=== PATIENT | male | born 1975 | race Caucasian/White ===

== ENCOUNTER 2016-10-23 21:12 | Inpatient (IN) | payer MEDICAID ==
[~2016-10-23] VITALS: Ht 185.4 cm; Wt 69.5 kg
[2016-10-23 21:43] LABS: BASOPHILS % (AUTO) 0.7 % (0.0-2.0); EOSINOPHILS % (AUTO) 1.2 % (1.0-6.0); HEMATOCRIT 43.8 % (41-53); HEMOGLOBIN 14.4 g/dL (13.5-17.5); LYMPHOCYTES # (AUTO) 2.5 K/uL (1.0-4.8); LYMPHOCYTES % (AUTO) 22.6 % (22.0-44.0); MEAN CORPUSCULAR HEMOGLOBIN 28.7 pg (26.0-34.0); MEAN CORPUSCULAR HGB CONC 32.9 G/dL (31.0-37.0); MEAN CORPUSCULAR VOLUME 87 fL (80-100); MONOCYTES % (AUTO) 8.8 % (2.0-9.0); NEUTROPHILS # (AUTO) 7.4 K/uL (1.8-7.7); NEUTROPHILS % (AUTO) 66.7 % (40.0-70.0); PLATELET COUNT (AUTO) 232 K/uL (150-450); RED BLOOD CELL COUNT(AUTO) 5.03 MIL/uL (4.50-5.90); RED CELL DISTRIBUTION WIDTH 14.3 % (11.5-14.5); WHITE BLOOD COUNT (AUTO) 11.1 K/uL (4.5-11.0)
[2016-10-23 21:54] LABS: ANION GAP 10 mmol/L (8-16); CALCIUM, TOTAL 8.6 mg/dL (8.8-10.5); CARBON DIOXIDE 28 mmol/L (22-29); CHLORIDE 103 mmol/L (98-107); CREATININE 1.19 mg/dL (0.60-1.30); GLOMERULAR FILTR. RATE CALC > 60 mL/min (>60); POTASSIUM 3.7 mmol/L (3.5-5.1); SODIUM SERUM 141 mmol/L (136-145); UREA NITROGEN, BLOOD 27 mg/dL (7-18)
[2016-10-23 21:59] LABS: ALANINE AMINOTRANSFERASE 108 U/L (12-78); ALBUMIN 3.7 g/dL (3.4-5.0); ASPARTATE AMINOTRANSFERASE 88 U/L (15-37); BILIRUBIN,TOTAL 0.8 mg/dL (0.1-1.0); TOTAL PROTEIN, SERUM 7.1 g/dL (6.4-8.2)
[2016-10-23] MEDS ORDERED: HALOPERIDOL 5 MG TABLET PO PRN (22:15)
[2016-10-23] MEDS ORDERED: LORazepam 2 MG TABLET PO PRN (22:15)
[2016-10-24 02:01] VITALS: BP 120/77
[2016-10-24] MEDS ORDERED: INFLUENZA VIRUS VACCINE QVS 2016-17 (3YR+)/PF 60 MCG/0.5 ML SYRINGE IM ONE (02:30)
[2016-10-24 08:11] VITALS: BP 128/80
[2016-10-24 16:40] VITALS: BP 107/69
[2016-10-24] MEDS: ZOLPIDEM TARTRATE 10 MG TABLET PO PRN (20:22)
[2016-10-25 00:10] VITALS: BP 107/66
[2016-10-25 08:11] VITALS: BP 114/71
[2016-10-25] MEDS: OLANZapine 5 MG RAPDIS TABLET PO SCH ×2 (10:21→17:00)
[2016-10-25 16:00] VITALS: BP 110/61
[2016-10-25] MEDS: ZOLPIDEM TARTRATE 10 MG TABLET PO PRN (21:19)
[2016-10-26 00:24] VITALS: BP 103/60
[2016-10-26 08:38] VITALS: BP 130/89
[2016-10-26] MEDS: OLANZapine 5 MG RAPDIS TABLET PO SCH ×2 (08:47→16:40)
[2016-10-26 16:23] VITALS: BP 116/73
[2016-10-27 01:24] VITALS: BP 126/68
[2016-10-27 09:03] VITALS: BP 114/67
[2016-10-27] MEDS: OLANZapine 5 MG RAPDIS TABLET PO SCH (09:12)
[2016-10-27] MEDS ORDERED: OLAN5Z PO (12:10)
== END 2016-10-27 13:25 | disposition home or self-care (01) | DRG 751 ==
LOC: EMS 21:13 → UNDOADMIN 22:45 → B2S 22:45 → 3EI 22:45 → B2S 10-24 01:47
PROVIDERS: ADMIT Psychiatry & Neurology Child & Adolescent Psychiatry; ATTEND Psychiatry & Neurology Child & Adolescent Psychiatry
DX: F29 Unspecified psychosis not due to a substance or known physiological condition (principal); R45.851 Suicidal ideations; F15.90 Other stimulant use, unspecified, uncomplicated; Z28.21 Immunization not carried out because of patient refusal
CPT/HCPCS: 90471; 99285; G0480